=== PATIENT | female | born 1945 | race Caucasian/White ===

== ENCOUNTER 2017-10-22 01:09 | Inpatient (IN) | payer BC, MEDICARE ==
[~2017-10-22] VITALS: Ht 172.7 cm; Wt 100.0 kg
[2017-10-22] MEDS ORDERED: OMNIPAQUE 350 MG/ML, 100ML BOTTLE ONE (01:53)
[2017-10-22] MEDS ORDERED: ATOR20TA PO (01:58)
[2017-10-22] MEDS ORDERED: DULO30CA2 PO (01:58)
[2017-10-22] MEDS ORDERED: OMEP40CA6 PO (01:58)
[2017-10-22] MEDS ORDERED: RIVA20TA PO (01:58)
[2017-10-22] MEDS ORDERED: METO25TA35 PO (01:58)
[2017-10-22] MEDS ORDERED: PROCHLORPERAZINE 5 MG/ML, 2ML IVPush ONE (02:00)
[2017-10-22 02:07] LABS: BASOPHILS # (AUTO) 0.04 x10^3/uL (0-0.1); BASOPHILS % (AUTO) 0 % (0-1); EOSINOPHILS # (AUTO) 0.41 x10^3/uL (0-0.4); EOSINOPHILS % (AUTO) 4 % (1-7); LYMPHOCYTES % (AUTO) 32 % (22-44); MD NO; MEAN CORPUSCULAR HEMOGLOBIN 30.7 pg (27.0-34.8); MEAN CORPUSCULAR HGB CONC 32.6 g/dL (32.4-35.8); MEAN CORPUSCULAR VOLUME 94.1 fL (80-100); MEAN PLATELET VOLUME 8.9 fL (7.4-10.4); MONOCYTES # (AUTO) 0.94 x10^3/uL (0.2-0.8); MONOCYTES % (AUTO) 9 % (2-9); NEUTROPHILS # (AUTO) 5.73 x10^3/uL (1.8-6.8); NEUTROPHILS % (AUTO) 55 % (42-75); PLATELET COUNT 382 x10^3/uL (130-400); RED BLOOD COUNT 4.52 x10^6/uL (3.82-5.3); RED CELL DISTRIBUTION WIDTH 14.4 % (9.6-15.2)
[2017-10-22 02:18] LABS: ALANINE AMINOTRANSFERASE 22 U/L (12-78); ALBUMIN 3.3 g/dL (3.4-5.0); ANION GAP 9 mmol/L (5-15); CALCIUM 8.5 mg/dL (8.5-10.1); CHLORIDE 109 mmol/L (98-107); CREATININE 0.73 mg/dL (0.55-1.02)
[2017-10-22 02:23] LABS: ALKALINE PHOSPHATASE 113 U/L (45-117); BILIRUBIN,TOTAL 0.2 mg/dL (0.2-1.0); TOTAL PROTEIN 7.8 g/dL (6.4-8.2); TROPONIN I < 0.015 ng/mL (0.000-0.045)
[2017-10-22] MEDS ORDERED: MORPHINE SULFATE 4 MG/ML, 1ML ONE ×2 (02:46→03:19)
[2017-10-22] MEDS ORDERED: PROCHLORPERAZINE 5 MG/ML, 2ML ONE (02:46)
[2017-10-22 02:51] LABS: MICROSCOPIC NOT IND
[2017-10-22] MEDS: MORPHINE SULFATE 4 MG/ML, 1ML IVPush PRN ×2 (02:54→03:22)
[2017-10-22 02:55] LABS: CULTURE INDICATED? NO
[2017-10-22] MEDS ORDERED: HYDROmorphone 1 MG/ML, 1ML IVPush PRN (04:30)
[2017-10-22] MEDS ORDERED: PIPERACILLIN/TAZO/PMX 3.375GM 50 ML IVPB ONE (04:30)
[2017-10-22] MEDS ORDERED: HYDROmorphone 2 MG/ML, 1ML ONE ×2 (04:31→05:27)
[2017-10-22] MEDS ORDERED: SODIUM CHLORIDE 0.9% 1,000 ML IV ONE (04:56)
[2017-10-22] MEDS ORDERED: PIPERACILLIN/TAZO/PMX 3.375GM 50 ML ONE (04:56)
[2017-10-22] MEDS ORDERED: MORPHINE SULFATE 4 MG/ML, 1ML IVPush PRN (05:00)
[2017-10-22] MEDS ORDERED: ONDANSETRON 2MG/ML, 2ML IVPush PRN ×2 (05:00→07:30)
[2017-10-22 06:39] VITALS: BP 187/85
[2017-10-22] MEDS ORDERED: morphine SULFATE 10 MG/ML, 1ML IVPush PRN (07:30)
[2017-10-22] MEDS ORDERED: BISACODYL 10 MG SUPP PR PRN (07:30)
[2017-10-22] MEDS ORDERED: ACETAMINOPHEN 325 MG TABLET PO PRN (07:30)
[2017-10-22] MEDS: OXYcodone IR 5MG TABLET PO PRN ×3 (08:31→20:50)
[2017-10-22] MEDS: LACTOBACILLUS CHEW TABLET PO SCH ×3 (08:31→20:48)
[2017-10-22] MEDS: HEPARIN 5,000 UNITS/ML, 1ML SQ SCH ×2 (08:31→15:31)
[2017-10-22] MEDS: OMEPRAZOLE 20 MG CAPSULE.DR PO SCH (08:31)
[2017-10-22] MEDS: SENNA/DOCUSATE TABLET PO SCH (08:31)
[2017-10-22] MEDS: DULOXETINE 30 MG CAPSULE.DR PO SCH (08:32)
[2017-10-22] MEDS: CALCIUM/VITAMIN D3 250-125 TABLET PO SCH ×3 (08:32→20:48)
[2017-10-22] MEDS: METOPROLOL TARTRATE 25 MG TABLET PO SCH (08:32)
[2017-10-22] MEDS: LACTATED RINGERS 1,000 ML IV SCH (08:49)
[2017-10-22] MEDS ORDERED: CEFTRIAXONE PMX 2GM/50ML 50 ML IV SCH (09:00)
[2017-10-22 09:15] LABS: PARTIAL THROMBOPLASTIN TIME 39 Seconds (25-31); PROTHROMBIN TIME 11.4 Seconds (9.6-11.5)
[2017-10-22 09:52] LABS: FIBRINOGEN 433 mg/dL (200-340)
[2017-10-22] MEDS ORDERED: ISOSORBIDE DINITRATE 20 MG TABLET ONE ×3 (09:55→20:29)
[2017-10-22] MEDS: ISOSORBIDE DINITRATE 10 MG TABLET PO SCH ×3 (09:59→20:49)
[2017-10-22 12:39] LABS: PT 1:1 MIX 10.8 Seconds (9.6-11.5); PTT 1:1 MIX 29 Seconds (25-31); PTT 1:1 MIX (1 HR at 37 C) 29 Seconds (25-31)
[2017-10-22 13:05] VITALS: BP 124/86
[2017-10-22] MEDS ORDERED: ACETAMINOPHEN 325 MG TABLET ONE (17:08)
[2017-10-22] MEDS: ACETAMINOPHEN 325 MG TABLET PO SCH (17:10)
[2017-10-22 19:15] VITALS: BP 119/68
[2017-10-22] MEDS ORDERED: ONDANSETRON ODT 4 MG PO PRN (20:00)
[2017-10-22] MEDS: ATORVASTATIN 20 MG TABLET PO SCH (20:49)
[2017-10-23 02:01] VITALS: BP 125/67
[2017-10-23] MEDS: OXYcodone IR 5MG TABLET PO PRN ×4 (03:11→21:16)
[2017-10-23 05:39] LABS: MEAN CORPUSCULAR HEMOGLOBIN 30.8 pg (27.0-34.8); MEAN CORPUSCULAR HGB CONC 32.7 g/dL (32.4-35.8); MEAN PLATELET VOLUME 9.1 fL (7.4-10.4); PLATELET COUNT 333 x10^3/uL (130-400); RED CELL DISTRIBUTION WIDTH 14.4 % (9.6-15.2)
[2017-10-23 05:45] LABS: ALBUMIN 2.7 g/dL (3.4-5.0); ANION GAP 8 mmol/L (5-15); CALCIUM 8.3 mg/dL (8.5-10.1); CHLORIDE 102 mmol/L (98-107)
[2017-10-23 05:48] LABS: ALANINE AMINOTRANSFERASE 19 U/L (12-78); ALKALINE PHOSPHATASE 97 U/L (45-117); BILIRUBIN,TOTAL 0.6 mg/dL (0.2-1.0); CREATININE 0.74 mg/dL (0.55-1.02); TOTAL PROTEIN 6.8 g/dL (6.4-8.2)
[2017-10-23 06:01] LABS: MD YES
[2017-10-23 06:03] LABS: BAND#(MANUAL) 3.44 x10^3/uL; BANDS%(MANUAL) 15 % (0-7); LYMPH#(MANUAL) 3.21 x10^3/uL (1-3.4); LYMPHS% (MANUAL) 14 % (22-44); MONOS#(MANUAL) 1.15 x10^3/uL (0.3-2.7); MONOS% (MANUAL) 5 % (2-9); SEG#(MANUAL) 15.11 x10^3/uL (1.8-6.8); SEGS% (MANUAL) 66 % (42-75)
[2017-10-23 06:05] LABS: <PLATELET ESTIMATE> ADEQUATE; <PLT MORPHOLOGY> NORMAL PLT MORPH; POLYCHROMASIA 1+
[2017-10-23] MEDS: ACETAMINOPHEN 325 MG TABLET PO SCH ×5 (06:19→23:55)
[2017-10-23] MEDS: ALENDRONATE 10 MG TABLET PO SCH (06:19)
[2017-10-23 06:55] VITALS: BP 105/65
[2017-10-23] MEDS ORDERED: ISOSORBIDE DINITRATE 20 MG TABLET ONE ×3 (08:04→21:10)
[2017-10-23 08:17] VITALS: BP 114/60
[2017-10-23] MEDS: METOPROLOL TARTRATE 25 MG TABLET PO SCH (08:19)
[2017-10-23] MEDS: SENNA/DOCUSATE TABLET PO SCH (08:19)
[2017-10-23] MEDS: HEPARIN 5,000 UNITS/ML, 1ML SQ SCH ×4 (08:19→23:55)
[2017-10-23] MEDS: DULOXETINE 30 MG CAPSULE.DR PO SCH (08:19)
[2017-10-23] MEDS: ISOSORBIDE DINITRATE 10 MG TABLET PO SCH ×3 (08:19→21:15)
[2017-10-23] MEDS: OMEPRAZOLE 20 MG CAPSULE.DR PO SCH (08:20)
[2017-10-23] MEDS: CEFTRIAXONE 2 GM in DEXTROSE 5% 50 ML IV SCH (08:20)
[2017-10-23] MEDS: LACTOBACILLUS CHEW TABLET PO SCH ×3 (08:20→21:16)
[2017-10-23] MEDS: CALCIUM/VITAMIN D3 250-125 TABLET PO SCH ×3 (08:20→21:16)
[2017-10-23 12:32] VITALS: BP 105/55
[2017-10-23] MEDS: LACTATED RINGERS 1,000 ML IV SCH ×2 (15:05)
[2017-10-23 21:01] VITALS: BP 112/65
[2017-10-23] MEDS: ATORVASTATIN 20 MG TABLET PO SCH (21:16)
[2017-10-24 02:39] VITALS: BP 97/60
[2017-10-24 05:49] LABS: ANION GAP 7 mmol/L (5-15); CALCIUM 8.1 mg/dL (8.5-10.1); CHLORIDE 101 mmol/L (98-107)
[2017-10-24 05:50] LABS: CREATININE 0.74 mg/dL (0.55-1.02)
[2017-10-24] MEDS: ALENDRONATE 10 MG TABLET PO SCH (06:08)
[2017-10-24] MEDS: ACETAMINOPHEN 325 MG TABLET PO SCH ×4 (06:08→20:41)
[2017-10-24] MEDS: LACTATED RINGERS 1,000 ML IV SCH ×2 (06:09→21:41)
[2017-10-24 06:41] VITALS: BP 114/73
[2017-10-24] MEDS: HEPARIN 5,000 UNITS/ML, 1ML SQ SCH ×2 (07:41→17:33)
[2017-10-24] MEDS ORDERED: ISOSORBIDE DINITRATE 20 MG TABLET ONE (07:57)
[2017-10-24] MEDS: SENNA/DOCUSATE TABLET PO SCH (08:01)
[2017-10-24] MEDS: LACTOBACILLUS CHEW TABLET PO SCH ×3 (08:01→20:34)
[2017-10-24] MEDS: DULOXETINE 30 MG CAPSULE.DR PO SCH (08:02)
[2017-10-24] MEDS: CALCIUM/VITAMIN D3 250-125 TABLET PO SCH ×3 (08:02→20:34)
[2017-10-24] MEDS: ISOSORBIDE DINITRATE 10 MG TABLET PO SCH ×3 (08:02→20:29)
[2017-10-24] MEDS: OMEPRAZOLE 20 MG CAPSULE.DR PO SCH (08:02)
[2017-10-24] MEDS: METOPROLOL TARTRATE 25 MG TABLET PO SCH (08:03)
[2017-10-24] MEDS: CEFTRIAXONE 2 GM in DEXTROSE 5% 50 ML IV SCH (09:01)
[2017-10-24 12:09] VITALS: BP 120/79
[2017-10-24] MEDS ORDERED: BUPIVACAINE/PF 0.5% ONE (13:55)
[2017-10-24] MEDS ORDERED: EPINEPHRINE 1 MG/ML, 1ML ONE (13:55)
[2017-10-24] MEDS ORDERED: FENTANYL PF 100 MCG/2ML ONE ×3 (14:09→15:32)
[2017-10-24] MEDS ORDERED: CEFAZOLIN 1,000 MG ONE (14:11)
[2017-10-24] MEDS ORDERED: LIDOCAINE-MPF 1%, 5ML ONE (14:11)
[2017-10-24] MEDS ORDERED: ROCURONIUM 10 MG/ML,10ML ONE (14:11)
[2017-10-24] MEDS ORDERED: NEOSTIGMINE 1 MG/ML, 10ML ONE (14:11)
[2017-10-24] MEDS ORDERED: PROPOFOL 10 MG/ML, 20ML ONE (14:11)
[2017-10-24] MEDS ORDERED: GLYCOPYRROLATE 0.2MG/1ML, 5ML ONE (14:11)
[2017-10-24] MEDS ORDERED: METOPROLOL 1 MG/ML, 5ML ONE (14:11)
[2017-10-24] MEDS ORDERED: PHENYLEPHRINE 10 MG/ML ONE (14:11)
[2017-10-24] MEDS: FENTANYL PF 100 MCG/2ML IV PRN ×2 (15:35→15:48)
[2017-10-24] MEDS ORDERED: ACETAMINOPHEN 650 MG/20.3 ML UDC ONE (15:53)
[2017-10-24] MEDS ORDERED: OXYcodone 5 MG/5 ML ORAL.SOL UDC ONE (15:54)
[2017-10-24] MEDS ORDERED: ONDANSETRON 2MG/ML, 2ML IVPush PRN (16:00)
[2017-10-24] MEDS ORDERED: OXYcodone 5 MG/5 ML ORAL.SOL UDC PO PRN (16:00)
[2017-10-24] MEDS ORDERED: ACETAMINOPHEN 325 MG TABLET PO PRN (16:00)
[2017-10-24] MEDS ORDERED: morphine SULFATE 10 MG/ML, 1ML IV PRN (16:00)
[2017-10-24] MEDS ORDERED: PROMETHAZINE 25 MG/ML, 1ML IV PRN (16:00)
[2017-10-24 17:30] VITALS: BP 100/64
[2017-10-24 20:30] VITALS: BP 96/64
[2017-10-24] MEDS: ATORVASTATIN 20 MG TABLET PO SCH (20:34)
[2017-10-25 00:22] VITALS: BP 100/63
[2017-10-25] MEDS: OXYcodone IR 5MG TABLET PO PRN ×4 (01:07→20:53)
[2017-10-25] MEDS: HEPARIN 5,000 UNITS/ML, 1ML SQ SCH ×3 (01:53→17:34)
[2017-10-25] MEDS: ACETAMINOPHEN 325 MG TABLET PO SCH ×4 (04:36→19:00)
[2017-10-25 04:40] VITALS: BP 124/77
[2017-10-25] MEDS: ALENDRONATE 10 MG TABLET PO SCH (06:17)
[2017-10-25 07:50] VITALS: BP 108/63
[2017-10-25] MEDS: ISOSORBIDE DINITRATE 10 MG TABLET PO SCH ×3 (09:00→20:53)
[2017-10-25] MEDS: DULOXETINE 30 MG CAPSULE.DR PO SCH (09:10)
[2017-10-25] MEDS: CEFTRIAXONE 2 GM in DEXTROSE 5% 50 ML IV SCH (09:10)
[2017-10-25] MEDS: LACTOBACILLUS CHEW TABLET PO SCH ×3 (09:10→20:53)
[2017-10-25] MEDS: SENNA/DOCUSATE TABLET PO SCH (09:11)
[2017-10-25] MEDS: OMEPRAZOLE 20 MG CAPSULE.DR PO SCH (09:11)
[2017-10-25] MEDS: CALCIUM/VITAMIN D3 250-125 TABLET PO SCH ×3 (09:11→20:52)
[2017-10-25] MEDS: METOPROLOL TARTRATE 25 MG TABLET PO SCH (09:11)
[2017-10-25] MEDS: LACTATED RINGERS 1,000 ML IV SCH (12:44)
[2017-10-25 13:11] VITALS: BP 112/66
[2017-10-25 20:23] VITALS: BP 132/74
[2017-10-25] MEDS: ATORVASTATIN 20 MG TABLET PO SCH (20:53)
[2017-10-26] MEDS: HEPARIN 5,000 UNITS/ML, 1ML SQ SCH ×2 (00:47→09:10)
[2017-10-26] MEDS: ACETAMINOPHEN 325 MG TABLET PO SCH ×2 (00:47→09:09)
[2017-10-26 00:59] VITALS: BP 109/65
[2017-10-26] MEDS: LACTATED RINGERS 1,000 ML IV SCH (03:59)
[2017-10-26 05:41] LABS: MEAN CORPUSCULAR HEMOGLOBIN 31.1 pg (27.0-34.8); MEAN CORPUSCULAR HGB CONC 32.7 g/dL (32.4-35.8); MEAN PLATELET VOLUME 8.5 fL (7.4-10.4); PLATELET COUNT 356 x10^3/uL (130-400); RED BLOOD COUNT 3.37 x10^6/uL (3.82-5.3); RED CELL DISTRIBUTION WIDTH 14.2 % (9.6-15.2)
[2017-10-26 06:16] LABS: BASOPHILS # (AUTO) 0.11 x10^3/uL (0-0.1); BASOPHILS % (AUTO) 1 % (0-1); EOSINOPHILS # (AUTO) 0.22 x10^3/uL (0-0.4); EOSINOPHILS % (AUTO) 2 % (1-7); LYMPHOCYTES # (AUTO) 2.93 x10^3/uL (1-3.4); LYMPHOCYTES % (AUTO) 20 % (22-44); MD SCAN; MONOCYTES # (AUTO) 1.31 x10^3/uL (0.2-0.8); MONOCYTES % (AUTO) 9 % (2-9); NEUTROPHILS # (AUTO) 9.77 x10^3/uL (1.8-6.8); NEUTROPHILS % (AUTO) 68 % (42-75)
[2017-10-26] MEDS: OXYcodone IR 5MG TABLET PO PRN (06:25)
[2017-10-26] MEDS: ALENDRONATE 10 MG TABLET PO SCH (06:25)
[2017-10-26 07:10] VITALS: BP 110/65
[2017-10-26] MEDS: DULOXETINE 30 MG CAPSULE.DR PO SCH (09:08)
[2017-10-26] MEDS: SENNA/DOCUSATE TABLET PO SCH (09:09)
[2017-10-26] MEDS: ISOSORBIDE DINITRATE 10 MG TABLET PO SCH (09:09)
[2017-10-26] MEDS: LACTOBACILLUS CHEW TABLET PO SCH (09:09)
[2017-10-26] MEDS: CALCIUM/VITAMIN D3 250-125 TABLET PO SCH (09:09)
[2017-10-26] MEDS: OMEPRAZOLE 20 MG CAPSULE.DR PO SCH (09:09)
[2017-10-26] MEDS: METOPROLOL TARTRATE 25 MG TABLET PO SCH (09:09)
[2017-10-26] MEDS: CEFTRIAXONE 2 GM in DEXTROSE 5% 50 ML IV SCH (09:10)
[2017-10-26 12:41] VITALS: BP 117/73
== END 2017-10-26 13:50 | disposition home or self-care (01) | DRG 418 ==
LOC: ED 05:10 → EDIP 05:15 → 4NOR 05:43 → 4EST 10-24 17:22 → DCLOUNGE 10-26 13:36
PROVIDERS: ADMIT Internal Medicine; ATTEND Hospitalist
PROC: 0FT44ZZ Resection of Gallbladder, Percutaneous Endoscopic Approach (ICD-10-PCS; principal; 2017-10-24 14:00)
DX: K80.00 Calculus of gallbladder with acute cholecystitis without obstruction (principal); D68.69 Other thrombophilia; I48.0 Paroxysmal atrial fibrillation; M48.56XA Collapsed vertebra, not elsewhere classified, lumbar region, initial encounter for fracture; E66.9 Obesity, unspecified; I10 Essential (primary) hypertension; G47.33 Obstructive sleep apnea (adult) (pediatric); Z96.651 Presence of right artificial knee joint; Z80.49 Family history of malignant neoplasm of other genital organs; Z82.5 Family history of asthma and other chronic lower respiratory diseases; Z86.73 Personal history of transient ischemic attack (TIA), and cerebral infarction without residual deficits; Z98.84 Bariatric surgery status; Z82.0 Family history of epilepsy and other diseases of the nervous system
CPT/HCPCS: 36415; 74177; 76700; 80048; 80053; 81003; 83690; 84484; 85025; 85384; 85610; 85670; 85730; 88304; 93005; 96374; 96375; J0171; J0690; J0696; J1170; J1644; J2543; J2704; J2710; J3010; J3490; Q9967; J0780; J2270; J2370; J7120

== ENCOUNTER → 2018-04-05 | Outpatient (CLI) | payer BC ==
[~2018-04-05] MED LIST: ATOR20TA PO; DULO30CA2 PO; METO25TA35 PO; OMEP40CA6 PO; RIVA20TA PO
== END | disposition home or self-care (01) ==
LOC: CFH 08:22
PROVIDERS: ATTEND Internal Medicine
DX: Z12.31 Encounter for screening mammogram for malignant neoplasm of breast (principal)
CPT/HCPCS: 77063; 77067

== ENCOUNTER 2019-05-21 14:32 | Outpatient (CLI) | payer BC ==
[~2019-05-21 14:32] MED LIST changes: +OMEP40CA42 PO; -OMEP40CA6 PO
== END 2019-05-21 23:59 | disposition home or self-care (01) ==
LOC: CFH 14:32
PROVIDERS: ATTEND Internal Medicine
DX: Z12.31 Encounter for screening mammogram for malignant neoplasm of breast (principal)
CPT/HCPCS: 77067

== ENCOUNTER → 2020-08-27 | Outpatient (CLI) | payer MEDICARE | END | disposition home or self-care (01) | LOC: CFH 10:40 | PROVIDERS: ATTEND Internal Medicine | DX: Z12.31 Encounter for screening mammogram for malignant neoplasm of breast (principal) | CPT/HCPCS: 77063; 77067 ==

== ENCOUNTER 2020-08-28 09:33 | Outpatient (CLI) | payer MEDICARE | END 2020-08-28 23:59 | disposition home or self-care (01) | LOC: CFH 09:33 | PROVIDERS: ATTEND Internal Medicine | DX: Z13.820 Encounter for screening for osteoporosis (principal); M85.88 Other specified disorders of bone density and structure, other site | CPT/HCPCS: 77080 ==